=== PATIENT | female | born 1985 | race Caucasian/White ===

== ENCOUNTER 2016-12-08 21:04 | Emergency (ER) | payer OTHER ==
[~2016-12-08] VITALS: Ht 160 cm; Wt 53.0 kg
[2016-12-08 21:12] VITALS: Ht 160 cm; Wt 53.0 kg
[2016-12-08] MEDS ORDERED: ONDANSETRON 4 MG INJ IV STA (23:45)
[2016-12-08] MEDS ORDERED: SOD CHLORIDE 0.9% 1,000 ML IV STA (23:45)
--- NOTE | 2016-12-09 00:06 | ERD ---
ER Documentation Chief Complaint Date/Time DATE: 12/09/16 TIME: 00:03 Chief Complaint headache, weakness, dizziness x 5 days, travelled to [facility] w/in a jose carlos HPI 31-year-old female presents here in emergency department for complaints of headache dizziness weakness fatigability for the last 5 days. Patient has just came back from [facility] after a vacation. Patient denies any abdominal pain, flank pain. Patient denies any vomiting. Patient denies any fever or chills. Patient does not complain of nausea. She was seen at a different emergency department yesterday, patient also has history of anxiety, was given Ativan and some antibiotics which did not really help that much. Does complain of headache throbbing pain 4/10 scale, not better or worse with anything. Described the dizziness as spinning sensation. ROS All systems reviewed and are negative except as per history of present illness. Medications Home Meds Reported Medications [none] Unknown Strength No Conflict Check 12/09/16 Allergies Allergies: Coded Allergies: No Known Allergy (Unverified , 12/08/16) PMhx/Soc Medical and Surgical Hx: pt denies Medical Hx, pt denies Surgical Hx History of Surgery: No Anesthesia Reaction: No Hx Neurological Disorder: No Hx Respiratory Disorders: No Hx Cardiac Disorders: No Hx Psychiatric Problems: No Hx Miscellaneous Medical Probl: No Hx Alcohol Use: No Hx Substance Use: No Hx Tobacco Use: No Smoking Status: Never smoker FmHx Family History: No coronary disease, No diabetes, No other Physical Exam Vitals Vital Signs Date Time Temp Pulse Resp B/P Pulse Ox O2 Delivery O2 Flow Rate FiO2 12/08/16 21:12 97.9 76 20 110/70 99 Physical Exam GENERAL: The patient is well developed and appropriate for usual state of health, in no apparent distress. CHEST: Clear to auscultation bilaterally. There are no rales, wheezes or rhonchi. HEART: Regular rate and rhythm. No murmurs, clicks, rubs or gallops. No S3 or S4. ABDOMEN: Soft, nontender and nondistended. Good bowel sounds. No rebound or guarding. No gross peritonitis. No gross organomegaly or masses. No sign or McBurney point tenderness. BACK: No midline or flank tenderness. EXTREMITIES: Equal pulses bilaterally. There is no peripheral clubbing, cyanosis or edema. No focal swelling or erythema. Full range of motion. Grossly neurovascularly intact. NEURO: Alert and oriented. Cranial nerves 2-12 intact. Motor strength in all 4 extremities with 5/5 strength. Sensation grossly intact. Normal speech and gait. SKIN: There is no apparent rash or petechia. The skin is warm and dry. HEMATOLOGIC AND LYMPHATIC: There is no evidence of excessive bruising or lymphedema. No gross cervical, axillary, or inguinal lymphadenopathy. Result Diagram: 12/08/16 2345 12/08/16 0000 Results 24 hrs Laboratory Tests Test 12/08/16 00:00 12/08/16 23:45 Sodium Level 141mmol/L Potassium Level 3.6mmol/L Chloride Level 106mmol/L Carbon Dioxide Level 22mmol/L Anion Gap 17 Blood Urea Nitrogen 9mg/dl Creatinine 0.73mg/dl Glucose Level 89mg/dl Calcium Level 9.7mg/dl Total Bilirubin 0.2mg/dl Direct Bilirubin 0.00mg/dl Indirect Bilirubin 0.2mg/dl Aspartate Amino Transf (AST/SGOT) 28IU/L Alanine Aminotransferase (ALT/SGPT) 35IU/L Alkaline Phosphatase 73IU/L Total Protein 8.6g/dl Albumin 4.4g/dl Globulin 4.20g/dl Albumin/Globulin Ratio 1.04 Lipase 52U/L White Blood Count 6.910^3/ul Red Blood Count 4.6110^6/ul Hemoglobin 13.4g/dl Hematocrit 38.9% Mean Corpuscular Volume 84.4fl Mean Corpuscular Hemoglobin 29.1pg Mean Corpuscular Hemoglobin Concent 34.4g/dl Red Cell Distribution Width 12.5% Platelet Count 24864^3/UL Mean Platelet Volume 10.0fl Neutrophils % 46.4% Lymphocytes % 45.2% Monocytes % 6.6% Eosinophils % 1.0% Basophils % 0.7% Nucleated Red Blood Cells % 0.0/100WBC Neutrophils # 3.210^3/ul Lymphocytes # 3.110^3/ul Monocytes # 0.510^3/ul Eosinophils # 0.110^3/ul Basophils # 0.110^3/ul Nucleated Red Blood Cells # 0.010^3/ul Urine Color YELLOW Urine Clarity CLEAR Urine pH 5.0 Urine Specific [place] 1.014 Urine Ketones 1+mg/dL Urine Nitrite NEGATIVEmg/dL Urine Bilirubin NEGATIVEmg/dL Urine Urobilinogen NEGATIVEmg/dL Urine Leukocyte Esterase NEGATIVELeu/ul Urine Microscopic RBC 0/HPF Urine Microscopic WBC 1/HPF Urine Bacteria FEW/HPF Urine Mucus MANY/HPF Urine Hemoglobin 1+mg/dL Urine Glucose NEGATIVEmg/dL Urine Total Protein NEGATIVEmg/dl Current Medications Medications (Trade) Dose Ordered Sig/Jonathan Route PRN Reason Start Time Stop Time Status Last Admin Dose Admin Sodium Chloride (NS) 1,000 ml @ 1,000 mls/hr Q1H STAT IV 12/08/16 23:45 12/09/16 00:44 DC 12/09/16 00:08 Ondansetron HCl (Zofran Inj) 4 mg ONCE STAT IV 12/08/16 23:45 12/08/16 23:47 DC 12/09/16 00:08 Normal saline IV bolus was given here in emergency department for rehydration, patient tolerated IV fluids. Patient was given Zofran here in the emergency department. After treatment, patient was able to tolerate po fluids here in the emergency department without any vomiting. There is no signs and symptoms of dehydration. Meclizine was given here in the emergency department. PROCEDURE: CT Brain without contrast. CLINICAL INDICATION: Headache. TECHNIQUE: A CT of the brain was performed utilizing axial sections from the skull base through the vertex without contrast. Multiplanar re-formations were generated. Images were reviewed on a high-resolution PACS workstation. CTDIvol: 45.01 mGy. DLP: 720.23 mGy-cm. One or more of the following dose reduction techniques were used: - Automated exposure control. - Adjustment of the mA and/or kV according to patient size. - Use of iterative reconstruction technique. COMPARISON: None available FINDINGS: There is no cerebral volume loss. No hydrocephalus is seen. There is no mass effect. No acute intracranial hemorrhage is identified. There is no extra-axial collection. Butterfield-white matter differentiation is preserved. There is no significant mucosal disease in the paranasal sinuses. The visualized mastoid air cells are clear. The ossesous structures are unremarkable. The extracranial soft tissues are unremarkable. IMPRESSION: 1. No acute intracranial pathology. RPTAT: HTAR .Kashmir Gudino MD, Date Time Electronically viewed and signed by .Kashmir Gudino MD, on 12/09/2016 01:26 .R/ CC: GONZALO JAY NP Procedures/MDM Medical decision making: Patient symptoms of headache dizziness body aches nonspecific at this time, possible viral, possible exhaustion from recent travels, patient was rehydrated here in the emergency department, CT scan of the brain was done and was negative for any acute neurologic emergencies. Neurologic exam is normal. No suspicion for meningitis, negative Kernig sign, negative Brudzinski sign. No elevation of white count, and cytopenia. Patient is not febrile. No symptoms of sepsis. Patient was given meclizine here in emergency department with mild relief of spinning sensation which may be caused by possible vertigo. Ear exam does not show any infection. Patient was advised to follow-up with neurologist specialist for further evaluation of symptoms. Patient was advised to return to emergency department for any worsening symptoms. Prescription was given for meclizine, was advised to continue other medications given to her yesterday. Patient was advised to return to emergency department for any worsening symptoms. Disposition: Home. Stable. Discussed this case with my attending physician, Dr. Low which agrees with plan at this time. Departure Diagnosis: Primary Impression: Headache Headache type: unspecified Headache chronicity pattern: acute headache Intractability: not intractable Qualified Code: R51 - Acute nonintractable headache, unspecified headache type Additional Impression: Dizziness Condition: Stable Patient Instructions: Dizziness (Vertigo) and Balance Problems: Ensuring Your Safety, Self-Care for Headaches GONZALO JAY NP Dec 09, 2016 00:06
[2016-12-09 01:07] LABS: BASOPHIL # 0.1 10^3/ul (0.0-0.1); BASOPHILS % 0.7 % (0.0-2.0); EOSINOPHILS # 0.1 10^3/ul (0.0-0.5); HEMATOCRIT 38.9 % (37.0-47.0); HEMOGLOBIN 13.4 g/dl (12.0-16.0); LYMPHOCYTES # 3.1 10^3/ul (0.8-2.9); LYMPHOCYTES % 45.2 % (15.0-51.0); MEAN CORPUSCULAR HEMOGLOBIN 29.1 pg (29.0-33.0); MEAN CORPUSCULAR HGB CONC 34.4 g/dl (32.0-37.0); MEAN CORPUSCULAR VOLUME 84.4 fl (82.0-101.0); MONOCYTE # 0.5 10^3/ul (0.3-0.9); MONOCYTES % 6.6 % (0.0-11.0); NEUTROPHIL # 3.2 10^3/ul (1.6-7.5); NEUTROPHILS % 46.4 % (39.0-77.0); PLATELET COUNT 357 10^3/UL (140-415); RED BLOOD COUNT 4.61 10^6/ul (4.20-5.40); RED CELL DISTRIBUTION WIDTH 12.5 % (11.5-14.5); WHITE BLOOD COUNT 6.9 10^3/ul (4.8-10.8)
[2016-12-09 01:23] LABS: ADD UMIC YES; UR ASCORBIC ACID NEGATIVE (NEGATIVE); UR BACTERIA FEW /HPF (NONE SEEN); UR BILIRUBIN (Dip) NEGATIVE (NEGATIVE); UR BLOOD (Dip) 1+ mg/dL (NEGATIVE); UR CLARITY CLEAR (CLEAR); UR COLOR YELLOW (YELLOW); UR GLUCOSE (Dip) NEGATIVE (NEGATIVE); UR KETONES (Dip) 1+ mg/dL (NEGATIVE); UR LEUKOCYTE ESTERASE (Dip) NEGATIVE Leu/ul (NEGATIVE); UR MUCUS MANY /HPF (NONE SEEN); UR NITRITE (Dip) NEGATIVE (NEGATIVE); UR RBC 0 /HPF (0-5); UR SPECIFIC GRAVITY (Dip) 1.014 (1.003-1.030); UR TOTAL PROTEIN (Dip) NEGATIVE (NEGATIVE); UR UROBILINOGEN (Dip) NEGATIVE (NEGATIVE)
--- NOTE | 2016-12-09 01:26 | RADRPT ---
PROCEDURE: CT Brain without contrast. CLINICAL INDICATION: Headache. TECHNIQUE: A CT of the brain was performed utilizing axial sections from the skull base through th e vertex without contrast. Multiplanar re-formations were generated. Images were reviewed on a high- resolution PACS workstation. CTDIvol: 45.01 mGy. DLP: 720.23 mGy-cm. One or more of the following dose reduction techniques were used: - Automated exposure control. - Adjustment of the mA and/or kV according to patient size. - Use of iterative reconstruction technique. COMPARISON: None available FINDINGS: There is no cerebral volume loss. No hydrocephalus is seen. There is no mass effect. No acute intrac ranial hemorrhage is identified. There is no extra-axial collection. Butterfield-white matter differentiati on is preserved. There is no significant mucosal disease in the paranasal sinuses. The visualized mastoid air cells are clear. The ossesous structures are unremarkable. The extracranial soft tissues are unremarkable. IMPRESSION: 1. No acute intracranial pathology. RPTAT: HTAR .Kashmir Gudino MD, MD Date Time Electronically viewed and signed by .Kashmir Gudino MD, on 12/09/2016 01:26 .R/
[2016-12-09 01:31] LABS: ALBUMIN 4.4 g/dl (3.3-4.9); ALBUMIN/GLOBULIN RATIO 1.04; BILIRUBIN,INDIRECT 0.2 mg/dl (0-1.1); BILIRUBIN,TOTAL 0.2 mg/dl (0.2-1.3); CALCIUM 9.7 mg/dl (8.4-10.2); CREATININE 0.73 mg/dl (0.44-1.00); POTASSIUM 3.6 mmol/L (3.5-5.1); TOTAL PROTEIN 8.6 g/dl (6.1-8.1)
[2016-12-09] MEDS ORDERED: MECL12.574 PO (01:49)
[2016-12-09] MEDS ORDERED: MECLIZINE 12.5 MG TAB PO ONE (02:00)
== END 2016-12-09 02:36 | disposition home or self-care (01) ==
LOC: FTE 21:04
DX: R51 Headache (principal); R42 Dizziness and giddiness
CPT/HCPCS: 36415; 70450; 80053; 81001; 83690; 85025; 96374; J2405; J7030; Z7502; Z7610